=== PATIENT | female | born 1995 | race Caucasian/White ===

== ENCOUNTER 2018-05-15 18:29 | Emergency (ER) | payer OTHER ==
[2018-05-15] MEDS ORDERED: CYCLOBENZAPRINE HCL 10 MG TABLET ONE (19:44)
[2018-05-15] MEDS ORDERED: IBUPROFEN 400 MG TABLET ONE (19:44)
[2018-05-15] MEDS ORDERED: IBUPROFEN 200 MG TAB ONE (19:44)
[2018-05-15] MEDS ORDERED: ACETAMINOPHEN-CODEINE 300/30MG TAB ONE (19:45)
== END 2018-05-15 20:39 | disposition home or self-care (01) ==
LOC: EDH 18:29
DX: S13.4XXA Sprain of ligaments of cervical spine, initial encounter (principal); S23.3XXA Sprain of ligaments of thoracic spine, initial encounter; V49.49XA Driver injured in collision with other motor vehicles in traffic accident, initial encounter; Y93.89 Activity, other specified; Y92.89 Other specified places as the place of occurrence of the external cause; Y99.8 Other external cause status
CPT/HCPCS: 72040; 72070

== ENCOUNTER 2023-12-20 18:44 | Emergency (ER) | payer OTHER ==
[~2023-12-20] VITALS: Ht 152.4 cm; Wt 66.2 kg
[2023-12-20 19:28] LABS: ADD UA MICROSCOPIC YES; APPEARANCE,URINE CLEAR (CLEAR); BILIRUBIN,URINE NEGATIVE (NEGATIVE); COLOR,URINE LIGHT-YELLOW (YELLOW); GLUCOSE, URINE (UA) NEGATIVE (NEGATIVE); KETONES,URINE 40 mg/dL (NEGATIVE); LEUKOCYTE ESTERASE ,URINE NEGATIVE Leu/uL (NEGATIVE); NITRATE,URINE NEGATIVE (NEGATIVE); OCCULT BLOOD,URINE NEGATIVE (NEGATIVE); PH,URINE 5.5 (5.0-8.0); PROTEIN,URINE NEGATIVE (NEGATIVE); UROBILINOGEN,URINE 0.2 mg/dL (0.2-1.0)
[2023-12-20 19:31] LABS: HCG,QUALITATIVE URINE NEGATIVE (NEGATIVE)
[2023-12-20 19:33] LABS: BACTERIA,URINE RARE /HPF (None Seen); MUCUS,URINE RARE LPF (None Seen); RBC,URINE 0-1 /HPF (0-1); SQUAMOUS EPITHELIAL CELL,UR FEW /HPF (0-2)
[2023-12-20] MEDS: KETOROLAC 30MG VIAL (30MG/ML) IM ONE (19:35)
[2023-12-20] MEDS: ORPHENADRINE 60MG/2ML IM ONE (19:35)
[2023-12-20 21:05] VITALS: BP 123/84; PULSE 72; RESP 16; O2SAT 99
[2023-12-20] MEDS ORDERED: KETO10TA2 PO (21:09)
== END 2023-12-20 21:16 | disposition home or self-care (01) ==
LOC: EDH 18:44
DX: S13.4XXA Sprain of ligaments of cervical spine, initial encounter (principal); R05.9 Cough, unspecified; X58.XXXA Exposure to other specified factors, initial encounter; Y93.89 Activity, other specified; Y92.89 Other specified places as the place of occurrence of the external cause; Y99.8 Other external cause status
CPT/HCPCS: 99284; 81001; 81025; 72100; 96372 ×2; J1885; J2360